=== PATIENT | female | born 1950 | race American Indian/Alaskan Native ===

== ENCOUNTER 2019-04-14 10:19 | Emergency (ER) | payer MEDICARE ==
--- NOTE | 2019-04-14 16:24 | Emergency Department Report ---
HPI - General Chief Complaint: Psych Time Seen by Provider: 04/14/19 15:34 - HPI HPI: 68-year-old -[place] female presents to the emergency department with her daughter for a mental health evaluation. The patient has a history of bipolar disorder and appears to be displaying some manic behavior. The patient lives with her son who apparently called the patient's daughter at 1:30 AM last night regarding abnormal or erratic behavior by the patient. The patient was up in her room moving papers, folders and other items around in her room. When the son confronted her about this abnormal behavior she became upset. Per the daughter, the patient has not been taking her medications and has not been eating or sleeping. The patient herself says that she is taking her medications but has difficulty explaining anything or giving details secondary to her pressured speech and flight of ideas. They went to a [facility] facility in [place] late last night/early this morning and apparently were discharged to follow-up at 8 AM with the behavioral department. However they were late for this appointment and were told that they were unable to be seen. Patient says that she has a psychiatrist, Dr. Bell, through [facility]. Patient also says t hat she has a history of dementia but at the time of my examination she is a O x3 to person place and time. She denies any suicidal or homicidal ideations. She denies any current hallucinations but does admit to some previous auditory hallucinations. ED Past Medical Hx - Past Medical History Hx Psychiatric Treatment: Yes (BIPOLAR MANIC DEPRESSION) Additional medical history: HIGH CHOLESTROL - Surgical History Additional Surgical History: LUMPECTOMY - Medications Home Medications: Home Medications Medication Instructions Recorded Confirmed Last Taken Type Cetirizine HCl [Zyrtec 10mg tab] 10 mg PO DAILY 04/14/19 04/14/19 Unknown History Fluticasone [Flonase] 1 spray NS QDAY 04/14/19 04/14/19 Unknown History Gabapentin [Neurontin] 100 mg PO Q8HR 04/14/19 04/14/19 Unknown History Meloxicam [Mobic] 7.5 mg PO QDAY 04/14/19 04/14/19 Unknown History Montelukast [Singulair] 1 tab PO QHS 04/14/19 04/14/19 Unknown History OXcarbazepine [Trileptal] 600 mg PO 04/14/19 Unknown History Pravastatin [Pravachol] 40 mg PO QHS 04/14/19 04/14/19 Unknown History Quetiapine Fumarate [SEROquel] 400 mg PO QHS 04/14/19 04/14/19 Unknown History ED Review of Systems ROS: Stated complaint: MENTAL HEALTH ISSUES Other details as noted in HPI Comment: All other systems reviewed and negative Constitutional: denies: chills, fever Eyes: denies: eye pain, vision change ENT: denies: ear pain, throat pain Respiratory: denies: cough, shortness of breath Cardiovascular: denies: chest pain, palpitations Gastrointestinal: denies: abdominal pain, vomiting Genitourinary: denies: dysuria, discharge Musculoskeletal: denies: back pain, arthralgia Skin: denies: rash, lesions Neurological: denies: headache, weakness Psychiatric: denies: homicidal thoughts, suicidal thoughts Physical Exam - Physical Exam Vital Signs: Vital Signs 04/14/19 10:23 Temperature 98.1 F Pulse Rate 92 H Respiratory 18 Rate Blood Pressure 140/78 O2 Sat by Pulse 96 Oximetry Physical Exam: GENERAL: The patient is well-developed well-nourished. HENT: Normocephalic. Atraumatic. Patient has moist mucous membranes. EYES: Extraocular motions are intact. NECK: Supple. Trachea is midline. CHEST/LUNGS: Clear to auscultation. There is no respiratory distress noted. HEART/CARDIOVASCULAR: Regular. There is no tachycardia. There is no murmur. ABDOMEN: Abdomen is soft, nontender. Patient has normal bowel sounds. SKIN: Skin is warm and dry. NEURO: The patient is awake, alert, and oriented. The patient has no focal neurologic deficits. No slurred speech. MUSCULOSKELETAL: There is no obvious deformity. There is no limitation range of motion. There is no evidence of acute injury. PSYCH: Patient has pressured speech and is hyperverbal. She displays tangential rambling thoughts. ED Course Vital Signs 04/14/19 10:23 Temperature 98.1 F Pulse Rate 92 H Respiratory 18 Rate Blood Pressure 140/78 O2 Sat by Pulse 96 Oximetry - Consultations Consultation #1: I spoke to Thiago who works with behavioral health at [facility]. She says that if the patient has been made a 1013 and needs transfer to a facility for involuntary inpatient psychiatric admission than the psychiatric assessment team will have to use 1 of the [facility] contracted psychiatric facilities which includ [facility] and [facility] in [place]. 04/14/19 20:39 ED Medical Decision Making - Lab Data Result diagrams: 04/14/19 16:05 04/14/19 16:05 - Medical Decision Making This patient was brought in for a mental health evaluation by her daughter secondary to some manic behavior. The patient does appear manic as she has pressured hyperverbal speech with tangential rambling thoughts. Patient appears to have a few different things that she is hyper focused on and all the answers to her questions elem around back to these few things, such as paperwork that she has had home, and her plan to move out of her son's house. She denies any suicidal or homicidal ideations, but given this many behavior the patient does not appear to be able to function appropriately and therefore she has been made a 1013. The patient has not yet been seen by our psychiatric assessment team. However I did speak with the behavioral services at [facility] who says that the patient will have to go to either [facility], or [place], if we continue to pursue inpatient psychiatric admission. Patient's labs are mostly unremarkable except for urine drug screen showing positive for methadone. Vital signs stable throughout her ED course. The patient appears medically cleared for psychiatric placement. - Differential Diagnosis Bipolar disorder, schizophrenia, substance abuse Critical Care Time: No Critical care attestation.: If time is entered above; I have spent that time in minutes in the direct care of this critically ill patient, excluding procedure time. ED Disposition Clinical Impression: Manic behavior, Acute psychosis Bipolar disorder Qualifiers: Active/Remission status: remission status unspecified Qualified Code(s): F31.9 - Bipolar disorder, unspecified Disposition: [id number] PSY HOSP/PSY UNIT Is pt being admited?: No Condition: Stable Referrals: PRIMARY CAREMD [Primary Care Provider] - 3-5 Days Time of Disposition: 22:22
[2019-04-14 16:29] LABS: Basophils % (Auto) 0.7 % (0.0-1.8); Eosinophils # (Auto) 0.4 K/mm3 (0.0-0.4); Eosinophils % (Auto) 6.4 % (0.0-4.3); Hematocrit 37.3 % (30.3-42.9); Hemoglobin 12.1 gm/dl (10.1-14.3); Lymphocytes # (Auto) 2.2 K/mm3 (1.2-5.4); Mean Corpuscular HGB Conc 33 % (30-34); Mean Corpuscular Volume 83 fl (79-97); Monocytes # (Auto) 0.7 K/mm3 (0.0-0.8); Monocytes % (Auto) 11.9 % (0.0-7.3); Platelet Count 230 K/mm3 (140-440); Red Blood Count 4.49 M/mm3 (3.65-5.03); Red Cell Distribution Width 16.7 % (13.2-15.2)
[2019-04-14 16:49] LABS: BUN/Creatinine Ratio 20; Blood Urea Nitrogen 16 mg/dL (7-17); Calcium 10.2 mg/dL (8.4-10.2); Hemolysis Index 2
[2019-04-14 18:57] LABS: Bilirubin,Urine NEG (Negative); Blood,Urine NEG (Negative); Color,Urine Yellow (Yellow); Mucus,Urine FEW /HPF; Protein,Urine <15 mg/dL mg/dL (Negative); Urobilinogen,Urine < 2.0 mg/dL (<2.0)
[2019-04-14 19:04] LABS: Amphetamine Screen,Urine PRESUMPTIVE NEGATIVE; Benzodiazepines Screen,Urine PRESUMPTIVE NEGATIVE; Cannabinoid Screen,Urine PRESUMPTIVE NEGATIVE; Cocaine Screen,Urine PRESUMPTIVE NEGATIVE; Opiate Screen,Urine PRESUMPTIVE NEGATIVE
[2019-04-14 19:21] LABS: Methadone Screen,Urine PRESUMPTIVE POSITIVE
[2019-04-14] MEDS ORDERED: QUEtiapine 200 MG TAB PO SCH (23:00)
[2019-04-14] MEDS: GABAPENTIN 100 MG CAP PO SCH (23:00)
[2019-04-15] MEDS: GABAPENTIN 100 MG CAP PO SCH (09:06)
[2019-04-15] MEDS ORDERED: CETIRIZINE 10 MG TAB PO SCH (10:00)
[2019-04-15 13:47] VITALS: BP 119/66
[2019-04-15] MEDS ORDERED: PRAVASTATIN 40 MG TAB PO SCH (22:00)
== END 2019-04-15 13:56 ==
LOC: ED 10:19 → EEVIPCON 10:19 → ED 04-15 13:56
DX: F31.9 Bipolar disorder, unspecified (principal); F23 Brief psychotic disorder; E78.00 Pure hypercholesterolemia, unspecified; Z79.899 Other long term (current) drug therapy; Z91.09 Other allergy status, other than to drugs and biological substances
CPT/HCPCS: 36415; 80048; 80307; 80320; 81001; 85025; 87086; A9270-GY; G0480